=== PATIENT | female | born 1960 | race Caucasian/White ===

== ENCOUNTER 2019-05-03 12:24 | Emergency (ER) | payer OTHER ==
--- NOTE | 2019-05-03 12:38 | ED Physician Documentation ---
PD HPI LOWER EXT INJURY - Stated complaint Stated Complaint: TOE INJURY - History obtained from History obtained from: Patient - History of Present Illness PD HPI LOW EXT INJURY LOCATION: Right, Toe (great toe) Type of injury: Puncture wound ([place]ing [place] in [place] and toe struck piece of wood sticking out. Splinter to dorsum right great toe. pulled it out. She is having pain at toe and is also out of date for tetanus.) Where injury occurred: Other ([place] in [place] Timing - onset: How many minutes ago (10) Timing - details: Abrupt onset, Still present (large splinter is out but toe hurts.) Worsened by: Moving, Palpating Associated symptoms: No: Weakness, Numbness Similar symptoms before: Has not had sx before Review of Systems Neurologic: denies: Focal weakness, Numbness PD PAST MEDICAL HISTORY - Past Medical History Cardiovascular: None Endocrine/Autoimmune: None - Present Medications Home Medications: Ambulatory Orders Medication Instructions Recorded Confirmed Hydrocodone/Acetaminophen [Douglas 1 each PO Q6H PRN #12 tablet 05/03/19 5-325 Tablet] - Allergies Allergies/Adverse Reactions: Allergies Allergy/AdvReac Type Severity Reaction Status Date / Time Sulfa (Sulfonamide Allergy Unknown Verified 05/03/19 12:49 Antibiotics) PD ED PE NORMAL - Vitals Vital signs reviewed: Yes - General General: Alert and oriented X 3, No acute distress, Well developed/nourished - Derm Derm: Normal color, Warm and dry - Extremities Extremities: Other (right great toe with 2 puncture wounds, dorsum and lateral side. Small speck of wood at entrance site, wipes easily. No visible residual FB noted. None palpable under skin. Area cleansed well. ) - Neuro Neuro: Alert and oriented X 3, No motor deficit, No sensory deficit Results - Vitals Vitals: Vital Signs - 24 hr 05/03/19 12:44 Temperature 36.4 C L Heart Rate 75 Respiratory 15 Rate Blood Pressure 128/50 L O2 Saturation 95 Oxygen O2 Source Room air PD MEDICAL DECISION MAKING - ED course Complexity details: considered differential (no obvious residual FB. Given tetanus booster and med for pain. ), d/w patient Departure - Departure Disposition: 01 Home, Self Care Clinical Impression: Puncture wound of great toe Qualifiers: Encounter type: initial encounter Laterality: right Qualified Code(s): S91.131A - Puncture wound without foreign body of right great toe without damage to nail, initial encounter Condition: Stable Record reviewed to determine appropriate education?: Yes Instructions: ED Wound Puncture General Prescriptions: Hydrocodone/Acetaminophen [Douglas 5-325 Tablet] 1 each PO Q6H PRN #12 tablet PRN Reason: Pain Comments: Tylenol ibuprofen or naproxen as needed for pains. Recheck if signs of infection develops. You did get a tetanus booster today. Discharge Date/Time: 05/03/19 13:43
[2019-05-03 12:49] VITALS: BP 128/50
[2019-05-03] MEDS ORDERED: TETANUS/DIPHTHERIA/PERTUSSIS 0.5 ML SYRINGE IM ONE (13:24)
[2019-05-03] MEDS ORDERED: HYDROcod/ACETAM 5/325 MG TABLET PO STA (13:24)
[2019-05-03] MEDS ORDERED: NAPROXEN 250 MG TABLET PO STA (13:24)
== END 2019-05-03 13:43 | disposition home or self-care (01) ==
LOC: ED 12:24
DX: S91.131A Puncture wound without foreign body of right great toe without damage to nail, initial encounter (principal); W45.8XXA Other foreign body or object entering through skin, initial encounter; Y93.01 Activity, walking, marching and hiking; Y92.89 Other specified places as the place of occurrence of the external cause; Z23 Encounter for immunization
CPT/HCPCS: 90471; 90715; 99283; A9270